=== PATIENT | female | born 1950 | race Caucasian/White ===

== ENCOUNTER 2016-10-07 20:42 | Emergency (ER) | payer MEDICARE, BC ==
[~2016-10-07 20:42] MED LIST: ASPIRIN325 MG PO; ATORVASTATIN CA40 MG PO; FENOFIBRATE134 MG PO; LANTUS SOLOSTAR3 ML SQ; LISINOPRIL-HCTZ PO; NAPROXEN SODIU220 M1 PO; NIACIN ER500 MG PO; TERBINAFINE HC250 M1 PO; VICTOZA0.6 MG/0.1 SQ
== END 2016-10-07 21:51 ==
LOC: EDMED 20:42
DX: S01.521A Laceration with foreign body of lip, initial encounter (principal); I10 Essential (primary) hypertension; E11.9 Type 2 diabetes mellitus without complications; W21.03XA Struck by baseball, initial encounter; Y93.64 Activity, baseball